=== PATIENT | male | born 1950 | race Caucasian/White ===

== ENCOUNTER 2016-07-08 08:41 | Emergency (ER) | payer BC ==
[~2016-07-08] VITALS: Ht 180.3 cm; Wt 92.3 kg
[2016-07-08] MEDS ORDERED: ONDANSETRON 4 MG INJ IV STA ×2 (08:43→10:25)
[2016-07-08] MEDS ORDERED: SOD CHLORIDE 0.9% 1,000 ML IV STA (08:43)
[2016-07-08] MEDS ORDERED: morphine 4 MG/ML VIAL IV STA (08:43)
[2016-07-08 08:56] VITALS: Ht 180.3 cm; Wt 92.3 kg
[2016-07-08] MEDS ORDERED: HYDROmorphONE 1 MG/ML SYG IV STA (09:14)
[2016-07-08 09:22] LABS: ADD SCAN DIFF NO
--- NOTE | 2016-07-08 09:27 | RADRPT ---
PROCEDURE: CT Abdomen and Pelvis without contrast. CLINICAL INDICATION: Abdominal pain. TECHNIQUE: CT scan of the abdomen and pelvis without contrast was performed on a multi-slice CT sc [facility] without intravenous contrast. Coronal and sagittal reformatted images were obtained from the axial source images. Images were reviewed on a high-resolution PACS workstation. One or more of the following does reduction techniques were used: Automated exposure control; adjustment of the mA an d/or kV according to patient size; use of the aorta of reconstruction technique. The total exam CTD I equals 17.55 mGy and the total exam DLP equals 1093.68 mGy-cm. COMPARISON: None available. FINDINGS: Breathing artifact limits evaluation of the lung bases. There is no evidence of infiltrate or effus ion. Heart size is at the upper limits of normal. Coronary artery calcifications are present. 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 There is mild diffuse decreased attenuation of the hepatic parenchyma consistent with fatty infiltra tion. The liver, spleen, and pancreas are otherwise normal given the limitations of a noncontrast C T examination. The gallbladder is normal. The adrenal glands are normal. There are multiple bilateral renal low density lesions consistent wi th cysts. There is some peripheral calcification and a right upper pole cyst. No right renal calci fications or right hydronephrosis is seen. There is a 3 mm left mid ureteral calcification causing mild left hydroureteronephrosis. No other renal calculi are identified Atherosclerotic calcifications of the aorta and iliac vasculature is present. There is an infrarena l abdominal aortic aneurysm measuring up to 3.6 cm. There is nonspecific engorgement of the bilater al external iliac veins. There is no evidence of large or small bowel obstruction. There are is moderate retained colonic st ool. A normal appendix is identified. No free fluid or fluid collections are identified. No infl ammatory changes are seen. The prostate is moderate to markedly enlarged and impressing on the base of the urinary bladder. No enlarged pelvic sidewall lymph nodes are seen. The bladder is within normal limits. No free fluid is identified. The inguinal regions are unremarkable. Note is made of bilateral L5 spondylolysis with approximately 1-2 mm of anterolisthesis of L5 on S1. There are moderate degenerative changes of the lumbar spine. IMPRESSION: 1. 3 mm left mid ureteral calcification causing mild left hydronephrosis. No other evidence of uro lithiasis. 2. 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 Far less likely, a necrotic lymph node could have this appearance. Consider n on emergent CT or MR chest with contrast if clinically indicated. 3. Fatty infiltration of the liver. 4. 3.6 cm infrarenal abdominal aortic aneurysm. Atherosclerotic vascular disease and coronary mirna ry calcifications are present. 5. Nonspecific engorgement of the bilateral external iliac veins. 6. Moderate retained colonic stool. 7. Moderate to marked prostatomegaly. RPTAT: KK .Chris Badillo MD, Date Time Electronically viewed and signed by .Chris Badillo MD, on 07/08/2016 09:27 .B/
[2016-07-08 09:28] LABS: BASOPHIL # 0.1 10^3/ul (0.0-0.1); BASOPHILS % 0.7 % (0.0-2.0); EOSINOPHILS # 0.1 10^3/ul (0.0-0.5); EOSINOPHILS % 2.1 % (0.0-7.0); HEMATOCRIT 41.4 % (42.0-52.0); HEMOGLOBIN 13.6 g/dl (14.0-18.0); LYMPHOCYTES # 2.4 10^3/ul (0.8-2.9); MEAN CORPUSCULAR HEMOGLOBIN 25.1 pg (29.0-33.0); MEAN CORPUSCULAR HGB CONC 32.9 g/dl (32.0-37.0); MEAN CORPUSCULAR VOLUME 76.5 fl (82.0-101.0); MEAN PLATELET VOLUME 10.9 fl (7.4-10.4); MONOCYTE # 0.5 10^3/ul (0.3-0.9); MONOCYTES % 6.9 % (0.0-11.0); NEUTROPHIL # 3.8 10^3/ul (1.6-7.5); NEUTROPHILS % 55.2 % (39.0-77.0); PLATELET COUNT 189 10^3/UL (140-415); RED BLOOD COUNT 5.41 10^6/ul (4.70-6.10); RED CELL DISTRIBUTION WIDTH 16.2 % (11.5-14.5); WHITE BLOOD COUNT 6.8 10^3/ul (4.8-10.8)
[2016-07-08] MEDS ORDERED: DICLOFENAC SODIUM 37.5 MG/ML VIAL IV STA (09:31)
[2016-07-08 09:35] LABS: ALBUMIN 4.2 g/dl (3.3-4.9)
[2016-07-08 09:36] LABS: INR 0.89; PT RATIO 0.9
[2016-07-08 09:37] LABS: BILIRUBIN,INDIRECT 0.8 mg/dl (0-1.1); BILIRUBIN,TOTAL 0.8 mg/dl (0.2-1.3); CREATININE 1.11 mg/dl (0.61-1.24); PARTIAL THROMBOPLASTIN TIME 22.5 Sec (25.0-35.0)
[2016-07-08 09:38] LABS: ALBUMIN/GLOBULIN RATIO 1.5; CALCIUM 9.2 mg/dl (8.4-10.2)
[2016-07-08 09:50] LABS: TROPONIN-I 0.014 ng/ml (0.00-0.12)
[2016-07-08] MEDS ORDERED: IBUP-1542 PO (11:00)
[2016-07-08] MEDS ORDERED: HYDR-902 PO (11:00)
--- NOTE | 2016-07-08 11:02 | ERD ---
ER Documentation Chief Complaint Date/Time DATE: 07/08/16 TIME: 11:01 Chief Complaint [id number], sudden onset left lower back pain, nausea & dizziness while driving HPI Patient is a 65-year-old male with prostate issues who presents with low back pain. The patient had acute onset of intense left-sided low back pain while driving to work. He has nausea. He denies chest pain. He has no other symptoms. He was brought in by ambulance. Upon review of old medical records this is the patient's first visit to the emergency department. This happened just prior to arrival. The pain is constant and sharp in nature. ROS All systems reviewed and are negative except as per history of present illness. Medications Home Meds Active Scripts Ibuprofen* (Motrin*) 600 Mg Tab, 600 MG PO Q6H Y for PAIN AND OR ELEVATED TEMP, #30 TAB Prov:KAREEM LAW MD 07/08/16 Hydrocodone/Acetaminophen ([place] 10-325 Tablet) 1 Each Tablet, 1 TAB PO Q6H Y for PAIN, #12 TAB Prov:KAREEM LAW MD 07/08/16 Reported Medications Cephalexin* (Cephalexin*) 500 Mg Capsule, 500 MG PO Q6, #28 CAP 07/08/16 Sulfamethoxazole-Trimethoprim* (Bactrim* DS) 800-160 Mg Tab, 1 TAB PO Q12H, #10 TAB 07/08/16 Simvastatin* (Zocor*) 10 Mg Tablet, 10 MG PO QHS, #30 TAB 07/08/16 Tamsulosin Hcl* (Tamsulosin Hcl*) 0.4 Mg Cap.er.24h, 0.4 MG PO DAILY, CAP 07/08/16 Finasteride* (Finasteride*) 5 Mg Tablet, 5 MG PO DAILY, TAB 07/08/16 Allergies Allergies: Coded Allergies: No Known Allergy (Unverified , 07/08/16) PMhx/Soc Medical and Surgical Hx: pt denies Medical Hx History of Surgery: No (Knee surgery ) Hx Alcohol Use: No Hx Substance Use: No Hx Tobacco Use: No Smoking Status: Never smoker FmHx Family History: No diabetes Physical Exam Vitals Vital Signs Date Time Temp Pulse Resp B/P Pulse Ox O2 Delivery O2 Flow Rate FiO2 07/08/16 11:56 97.8 67 16 139/91 100 Room Air 07/08/16 08:56 97.7 54 21 133/84 100 Physical Exam Const: Moderate distress Head: Atraumatic Eyes: Normal Conjunctiva ENT: Normal External Ears, Nose and Mouth. Neck: Full range of motion..~ No meningismus. Resp: Clear to auscultation bilaterally Cardio: Regular rate and rhythm, no murmurs Abd: Soft, non tender, non distended. Normal bowel sounds Skin: Pale and diaphoretic Back: No midline or flank tenderness Ext: No cyanosis, or edema Neur: Awake and alert Psych: Normal Mood and Affect Result Diagram: 07/08/16 0900 07/08/16 0900 Results 24 hrs Laboratory Tests Test 07/08/16 09:00 Activated Partial Thromboplast Time 22.5Sec Alanine Aminotransferase (ALT/SGPT) 61IU/L Albumin 4.2g/dl Albumin/Globulin Ratio 1.50 Alkaline Phosphatase 76IU/L Anion Gap 19 Aspartate Amino Transf (AST/SGOT) 55IU/L Basophils # 0.110^3/ul Basophils % 0.7% Blood Urea Nitrogen 14mg/dl Calcium Level 9.2mg/dl Carbon Dioxide Level 23mmol/L Chloride Level 106mmol/L Creatinine 1.11mg/dl Direct Bilirubin 0.00mg/dl Eosinophils # 0.110^3/ul Eosinophils % 2.1% Globulin 2.80g/dl Glucose Level 121mg/dl Hematocrit 41.4% Hemoglobin 13.6g/dl INR International Normalized Ratio 0.89 Indirect Bilirubin 0.8mg/dl Lipase 67U/L Lymphocytes # 2.410^3/ul Lymphocytes % 35.0% Mean Corpuscular Hemoglobin 25.1pg Mean Corpuscular Hemoglobin Concent 32.9g/dl Mean Corpuscular Volume 76.5fl Mean Platelet Volume 10.9fl Monocytes # 0.510^3/ul Monocytes % 6.9% Neutrophils # 3.810^3/ul Neutrophils % 55.2% Nucleated Red Blood Cells # 0.010^3/ul Nucleated Red Blood Cells % 0.0/100WBC Platelet Count 00923^3/UL Potassium Level 4.0mmol/L Prothrombin Time 12.0Sec Prothrombin Time Ratio 0.9 Red Blood Count 5.4110^6/ul Red Cell Distribution Width 16.2% Sodium Level 144mmol/L Total Bilirubin 0.8mg/dl Total Protein 7.0g/dl Troponin I 0.014ng/ml White Blood Count 6.810^3/ul Current Medications Medications (Trade) Dose Ordered Sig/Pam Route PRN Reason Start Time Stop Time Status Last Admin Dose Admin Sodium Chloride (NS) 1,000 ml @ 1,000 mls/hr Q1H STAT IV 07/08/16 08:43 07/08/16 09:42 DC 07/08/16 08:54 Morphine Sulfate (morphine) 4 mg ONCE STAT IV 07/08/16 08:43 07/08/16 08:44 DC 07/08/16 08:54 Ondansetron HCl (Zofran Inj) 4 mg ONCE STAT IV 07/08/16 08:43 07/08/16 08:44 DC 07/08/16 08:53 Hydromorphone HCl (Dilaudid) 1 mg ONCE STAT IV 07/08/16 09:14 07/08/16 09:15 DC 07/08/16 09:18 Diclofenac Sodium (Dyloject) 37.5 mg ONCE STAT IV 07/08/16 09:31 07/08/16 09:32 DC 07/08/16 09:42 Ondansetron HCl (Zofran Inj) 4 mg ONCE STAT IV 07/08/16 10:25 07/08/16 10:27 DC 07/08/16 10:56 Procedures/MDM EKG read by me: Rate/Rhythm: Regular rate and rhythm at a rate of 59 Intervals: Normal Impression: No evidence of ischemia or arrhythmia CT scan shows 3 mm kidney stone per radiology. Patient is a 65-year-old male presents with severe lower back pain. Laboratory studies were done and were basically normal. Urinalysis shows no signs of acute infection. CT scan of the abdomen pelvis shows a 3 mm kidney stone on the left side which is likely the source of his pain. The patient will be discharged home with ibuprofen and [place]. He was already given Flomax. The patient can return for any worsening symptoms. He was given copies of his laboratory studies and CT scan result prior to discharge. I will give him information for Dr. Miranda from urology for follow-up. Departure Diagnosis: Primary Impression: Kidney stone Additional Impressions: Back pain Back pain location: low back pain Chronicity: acute Back pain laterality: left Sciatica presence: without sciatica Qualified Code: M54.5 - Acute left- sided low back pain without sciatica Anemia Anemia type: unspecified type Qualified Code: D64.9 - Anemia, unspecified type Condition: Fair Patient Instructions: Kidney Stone W/ Colic Referrals: MIKA MIRANDA MD Additional Instructions: SPECIALIST: YOU HAVE A MEDICAL CONDITION WHICH REQUIRES YOU TO SEE A SPECIALIST WITHIN THE NEXT 1-2 DAYS. PLEASE FOLLOW UP WITH YOUR PRIMARY PHYSICIAN FOR REFFERAL.IF YOU DO NOT HAVE A PRIMARY CARE PHYSICIAN AND/OR YOU CAN NOT AFFORD TO SEE A PHYSICIAN THE FOLLOWING RESOURCES HAVE BEEN SUPPLIED TO YOU. IT IS YOUR RESPONSIBILITY TO BE SEEN BY THE SPECIALIST KAREEM LAW MD Jul 08, 2016 11:02
[2016-07-08] MEDS ORDERED: SIMV10TA PO (11:15)
[2016-07-08] MEDS ORDERED: FINA5TAB4 PO (11:15)
[2016-07-08] MEDS ORDERED: TAMS0.4C2 PO (11:15)
[2016-07-08] MEDS ORDERED: BACTDS PO (11:16)
[2016-07-08] MEDS ORDERED: CEPH500C PO (11:17)
[2016-07-08 11:56] VITALS: BP 139/91; PULSE 67; RESP 16; TEMP 97.8
[2016-07-08] MEDS ORDERED: ONDANSETRON (ODT) 4 MG TAB ODT STA (12:08)
== END 2016-07-08 11:48 | disposition home or self-care (01) ==
LOC: E/R 08:41
DX: N20.0 Calculus of kidney (principal); D64.9 Anemia, unspecified; R11.0 Nausea; R42 Dizziness and giddiness; R10.9 Unspecified abdominal pain
CPT/HCPCS: 36415; 74176; 80053; 83690; 84484; 85025; 85610; 85730; 86850; 86900; 86901; 93005; 96374; 96375; 96376; 99285; J1170; J2270; J2405; J7030